=== PATIENT | female | born 1985 | race Two or more races ===

== ENCOUNTER 2017-12-05 12:10 | Emergency (ER) | payer OTHER ==
[2017-12-05 12:19] VITALS: RESP 16
--- NOTE | 2017-12-05 13:26 | EDPHY ---
H & P Time Seen by Provider: 12/05/17 13:22 HPI/ROS: Chief complaint. Headache HPI. 32-year-old female presents with 2 day history of tingling and altered sensation left side of her face and then swelling around her left eye as well as to the left eye. She also also has a left-sided headache which is fairly typical of migraine headaches. She complains of eyeball pain. Yesterday her vision was blurry looking to the left but today it has blurry looking straight on. No symptoms on the right however she is legally blind in the right eye. She has tearing to the left eye but no drainage or crusting. No trauma to the eye. No fever. No cough, chest pain, shortness of breath, abdominal pain. No focal weakness or paresthesias to arms or legs. No similar symptoms previously. She does not wear contact lens. No left eye surgery previously ROS Constitutional. no fever/chills, no weakness Eyes. Blurry left eye with swelling around the left eye and eyeball pain ENT. no sore throat, no nasal drainage Cardiovascular. no chest pain Respiratory. no shortness of breath, no cough Abdominal. no abdominal pain, no nausea/vomiting, no diarrhea . no problems urinating MS. no calf pain/swelling, no neck/back pain, no joint pain Skin. no rash Lymph. no swollen glands Neuro. Left-sided headache Past Medical/Surgical History: Hypertension and chronic migraines Social History: Single, nonsmoker, no alcohol Smoking Status: Never smoked Physical Exam: General Appearance: Alert well-developed female moderate distress vital signs stable Eyes: Pupils equal round reactive. There is scleral edema. Full range of extraocular motion without restriction of gaze. ENT, Mouth: Mucous membranes are moist. Respiratory: There are no retractions, lungs are clear to auscultation. Cardiovascular: Regular rate and rhythm. Gastrointestinal: Abdomen is soft and nontender, no masses, bowel sounds normal. Neurological: Awake and alert, sensory and motor exams grossly normal. Cranial nerves intact though subjective sensation change to the left cheek. No pronator drift. [id number] are intact bilaterally. Speech is normal Skin: Warm and dry, no rashes. Musculoskeletal: Neck is supple nontender. Extremities symmetrical, full range of motion. Psychiatric: Patient is oriented X 3, there is no agitation. Constitutional: Initial Vital Signs Temperature (C) 37 C 12/05/17 12:10 Heart Rate 65 12/05/17 12:10 Respiratory Rate 16 12/05/17 12:10 Blood Pressure 149/105 H 12/05/17 12:10 O2 Sat (%) 97 12/05/17 12:10 O2 Delivery Mode Room Air Allergies/Adverse Reactions: losartan Allergy (Severe, Verified 12/05/17 12:21) swells up Home Medications: Medication Instructions Recorded Amoxicillin/Clavulanate Pot 875 mg PO BID #14 tab 12/05/17 [Augmentin 875 MG TAB (*)] Hydrochlorothiazide [HCTZ (*)] 25 mg PO DAILY 12/05/17 Metoprolol Succinate Xr [Toprol Xl 50 mg PO DAILY 12/05/17 50 mg (*)] SUMAtriptan [Imitrex 50 MG (*)] 100 mg PO 12/05/17 Verapamil ER [Calan SR/ER 120MG 120 mg PO 12/05/17 (*)] Medical Decision Making - Diagnostics Imaging Results: Imaging Impressions Face CT 12/05/17 13:48 Impression: 1. Mild preseptal thickening over the left orbit without evidence of underlying abscess or mass. 2. The right orbital globe is slightly wider than the left. 3. No significant intracranial abnormality seen. Findings discussed with Aaron Abdalla M.D. at 15:33 hour, 12/05/2017. Maxillofacial CT with IV contrast shows no evidence for orbital cellulitis. Procedures: Alcaine and fluorescein are instilled into the left eye. The eye is examined under slit lamp. Significant for scleral edema. No foreign body. No abrasion. Visual acuity is 2300 bilaterally. Again she is legally blind in the right eye ED Course/Re-evaluation: IV normal saline. Toradol, Reglan, Benadryl IV and Decadron IV for headache. Re-evaluation at 3:55 p.m.--patient is stable. She and I discussed imaging and lab results. We discussed treatment plan including criteria for return importance of follow-up and further evaluation. She expresses understanding and agreement I consulted and discussed the case with Dr. Whiting, ophthalmology who will see the patient in follow-up. He also recommends oral antibiotics as Augmentin. Differential Diagnosis: This appears to be periorbital infection but it is preseptal and not orbital cellulitis. I considered corneal abrasion or ulcer. - Data Points Laboratory Results: Laboratory Results 12/05/17 13:52 12/05/17 13:52 12/05/17 12/05/17 12/05/17 13:52 13:52 13:50 WBC 8.17 10^3/uL 10^3/uL (3.80-9.50) RBC 5.24 10^6/uL 10^6/uL (4.18-5.33) Hgb 16.5 g/dL H g/dL (12.6-16.3) Hct 45.9 % % (38.0-47.0) MCV 87.6 fL fL (81.5-99.8) MCH 31.5 pg pg (27.9-34.1) MCHC 35.9 g/dL g/dL (32.4-36.7) RDW 12.6 % % (11.5-15.2) Plt Count 361 10^3/uL 10^3/uL (150-400) MPV 10.0 fL fL (8.7-11.7) Neut % (Auto) 53.5 % % (39.3-74.2) Lymph % (Auto) 29.0 % % (15.0-45.0) Hamlin % (Auto) 7.7 % % (4.5-13.0) Eos % (Auto) 8.3 % H % (0.6-7.6) Baso % (Auto) 1.1 % % (0.3-1.7) Nucleat RBC Rel Count 0.0 % % (0.0-0.2) Absolute Neuts (auto) 4.37 10^3/uL 10^3/uL (1.70-6.50) Absolute Lymphs (auto) 2.37 10^3/uL 10^3/uL (1.00-3.00) Absolute Monos (auto) 0.63 10^3/uL 10^3/uL (0.30-0.80) Absolute Eos (auto) 0.68 10^3/uL H 10^3/uL (0.03-0.40) Absolute Basos (auto) 0.09 10^3/uL 10^3/uL (0.02-0.10) Absolute Nucleated RBC 0.00 10^3/uL 10^3/uL (0-0.01) Immature Gran % 0.4 % % (0.0-1.1) Immature Gran # 0.03 10^3/uL 10^3/uL (0.00-0.10) Sodium 143 mEq/L mEq/L (135-145) Potassium 4.1 mEq/L mEq/L (3.5-5.2) Chloride 103 mEq/L mEq/L (97-110) Carbon Dioxide 24 mEq/l mEq/l (22-31) Anion Gap 16 mEq/L mEq/L (8-16) BUN 9 mg/dL mg/dL (7-23) Creatinine 0.8 mg/dL mg/dL (0.6-1.0) Estimated GFR > 60 Glucose 100 mg/dL mg/dL (70-100) Calcium 10.0 mg/dL mg/dL (8.5-10.4) Beta HCG, Qual NEGATIVE Medications Given: Discontinued Medications Dexamethasone (Decadron Injection) 10 mg IVP EDNOW ONE Stop: 12/05/17 13:49 Last Admin: 12/05/17 14:32 Dose: 10 mg Diphenhydramine HCl (Benadryl Injection) 12.5 mg IVP EDNOW ONE Stop: 12/05/17 13:49 Last Admin: 12/05/17 14:32 Dose: 12.5 mg Fluorescein Sodium (Num[place]-X-Wejju) 1 mg OP EDNOW ONE Stop: 12/05/17 13:39 Last Admin: 12/05/17 13:46 Dose: 1 mg Sodium Chloride (Ns) 1,000 mls @ 0 mls/hr IV ONCE ONE; Wide Open PRN Reason: Protocol Stop: 12/05/17 13:49 Last Admin: 12/05/17 14:28 Dose: 1,000 mls Ketorolac Tromethamine (Toradol) 30 mg IVP EDNOW ONE Stop: 12/05/17 13:49 Last Admin: 12/05/17 14:32 Dose: 30 mg Metoclopramide HCl (Reglan Injection) 10 mg IVP EDNOW ONE Stop: 12/05/17 13:49 Last Admin: 12/05/17 14:27 Dose: 10 mg Proparacaine HCl (Alcaine 0.5%) 1 drops LEFTEYE ONCE ONE Stop: 12/05/17 13:39 Last Admin: 12/05/17 13:46 Dose: 1 drop Departure - Departure Disposition: Home, Routine, Self-Care Clinical Impression: Periorbital cellulitis of left eye Condition: Good Instructions: Periorbital Cellulitis in Adults (ED) Additional Instructions: Augmentin twice daily as antibiotic. Good hand washing to prevent spread of infection. Try not to rub your eye. Return for worsening symptoms. Recheck by Dr. Whiting, body shop manager, on Sunday if not better Referrals: Indira Mallory [Primary Care Provider] - As per Instructions Antoine Whiting MD [Medical Doctor] - 1-2 days without fail Prescriptions: Amoxicillin/Clavulanate Pot [Augmentin 875 MG TAB (*)] 875 mg PO BID #14 tab
[2017-12-05] MEDS ORDERED: PROPARACAINE 0.5% 15 ML OPHT DROP ONE (13:37)
[2017-12-05] MEDS ORDERED: FLUORESCEIN SODIUM 1 MG STRIP OP ONE ×2 (13:37→13:38)
[2017-12-05] MEDS ORDERED: PROPARACAINE 0.5% 15 ML OPHT DROP LEFTEYE ONE (13:38)
[2017-12-05] MEDS ORDERED: METOCLOPRAMIDE 10 MG/2 ML VIAL IVP ONE (13:48)
[2017-12-05] MEDS ORDERED: KETOROLAC 30 MG/1 ML SDV IVP ONE (13:48)
[2017-12-05] MEDS ORDERED: DEXAMETHASONE 10 MG/ML VIAL IVP ONE (13:48)
[2017-12-05] MEDS ORDERED: NS 1,000 ML IV ONE (13:48)
[2017-12-05 14:01] LABS: PLATELET COUNT 361 10^3/uL (150-400)
[2017-12-05] MEDS ORDERED: IOPAMIDOL (ISOVUE-300) 100 ML BTL ONE (14:25)
[2017-12-05 15:56] VITALS: BP 113/69; PULSE 63; O2SAT 94
[2017-12-05 16:24] VITALS: TEMP 98.6
== END 2017-12-05 16:23 | disposition home or self-care (01) ==
DX: L03.213 Periorbital cellulitis (principal); E86.9 Volume depletion, unspecified; I10 Essential (primary) hypertension
CPT/HCPCS: 96374; J1100; J1200; J1885; J2765; Q9967